=== PATIENT | female | born 1985 | race African-American/Black ===

== ENCOUNTER 2016-10-31 12:59 | Emergency (ER) | payer MEDICAID ==
[~2016-10-31] VITALS: Ht 160 cm; Wt 66.0 kg
[2016-10-31 13:08] VITALS: BP 118/65
== END 2016-10-31 17:41 | disposition left against medical advice (07) ==
LOC: ER 15:10
DX: O26.891 Other specified pregnancy related conditions, first trimester (principal); R07.9 Chest pain, unspecified; Z53.21 Procedure and treatment not carried out due to patient leaving prior to being seen by health care provider; Z3A.00 Weeks of gestation of pregnancy not specified